=== PATIENT | male | born 1985 | race American Indian/Alaskan Native ===

== ENCOUNTER 2019-04-30 18:23 | Emergency (ER) | payer SELFPAY ==
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
[2019-04-30] MEDS ORDERED: ACETAMINOPHEN 500 MG TAB PO ONE (22:06)
[2019-04-30] MEDS ORDERED: IBUPROFEN 600 MG TAB PO ONE (22:06)
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
[2019-04-30 23:05] VITALS: BP 118/67
== END 2019-04-30 23:00 | disposition home or self-care (01) ==
LOC: ED 18:23
DX: S39.012A Strain of muscle, fascia and tendon of lower back, initial encounter (principal); S16.1XXA Strain of muscle, fascia and tendon at neck level, initial encounter; E11.9 Type 2 diabetes mellitus without complications; Z79.1 Long term (current) use of non-steroidal anti-inflammatories (NSAID); Z79.899 Other long term (current) drug therapy; V49.59XA Passenger injured in collision with other motor vehicles in traffic accident, initial encounter; Y93.89 Activity, other specified; Y92.410 Unspecified street and highway as the place of occurrence of the external cause; Y99.8 Other external cause status
CPT/HCPCS: 72040; 72100

== ENCOUNTER 2019-05-19 00:55 | Emergency (ER) | payer SELFPAY ==
[2019-05-19 03:47] LABS: Hematocrit 47.8 % (35.5-45.6); Hemoglobin 15.8 gm/dl (11.8-15.2); Mean Corpuscular HGB Conc 33 % (32-34); Mean Corpuscular Volume 85 fl (84-94); Platelet Count 241 K/mm3 (140-440); Red Blood Count 5.64 M/mm3 (3.65-5.03)
[2019-05-19 03:56] LABS: BUN/Creatinine Ratio 18; Blood Urea Nitrogen 14 mg/dL (9-20); Calcium 9.9 mg/dL (8.4-10.2); Hemolysis Index 12
--- NOTE | 2019-05-19 04:51 | Emergency Department Report ---
ED Psych HPI - General Chief Complaint: Psych Stated Complaint: MH EVAL Time Seen by Provider: 05/19/19 03:18 Source: patient Mode of arrival: Ambulatory - History of Present Illness Initial Comments: Patient is a 34-year-old male who states he is feeling suicidal. Genesis rodriguez is having thoughts of "blowing his brains out". Patient also states that he wants help with getting diabetes supplies. States he is a diabetic and has been out of his insulin and he has supplies to deliver his insulin. Patient denies homicidal ideations or auditory visual hallucination at this time. Does admit to being depressed. - Related Data Home Medications Medication Instructions Recorded Confirmed Last Taken Insulin Glargine [Lantus VIAL] 60 units SUB-Q BID 05/19/19 05/19/19 05/18/19 Lisinopril [Zestril] 5 mg PO QDAY 05/19/19 05/19/19 05/18/19 Lispro Insulin [HumaLOG] See Protocol SQ ACHS 05/19/19 05/19/19 05/18/19 raNITIdine HCl [Zantac] 150 mg PO QDAY 05/19/19 05/19/19 05/18/19 Previous Rx's Medication Instructions Recorded Last Taken Type Ibuprofen [Motrin] 600 mg PO Q8H PRN #24 tablet 04/30/19 Unknown Rx tiZANidine [Zanaflex 4mg TAB] 4 mg PO Q8H PRN #21 tablet 04/30/19 Unknown Rx traMADoL [Ultram] 50 mg PO Q6HR PRN #12 tablet 04/30/19 Unknown Rx DULoxetine [Cymbalta] 30 mg PO BID #60 capsule 05/22/19 Unknown Rx QUEtiapine [SEROquel] 50 mg PO HS #60 tablet 05/22/19 Unknown Rx Allergies Allergy/AdvReac Type Severity Reaction Status Date / Time No Known Allergies Allergy Unverified 04/30/19 21:29 ED Review of Systems ROS: Stated complaint: EVAL Other details as noted in HPI Comment: All other systems reviewed and negative ED Past Medical Hx - Past Medical History Previous Medical History?: Yes Hx Diabetes: Yes - Surgical History Past Surgical History?: No - Social History Smoking Status: Current Every Day Smoker Substance Use Type: None - Medications Home Medications: Home Medications Medication Instructions Recorded Confirmed Last Taken Type Ibuprofen [Motrin] 600 mg PO Q8H PRN #24 tablet 04/30/19 Unknown Rx tiZANidine [Zanaflex 4mg TAB] 4 mg PO Q8H PRN #21 tablet 04/30/19 Unknown Rx traMADoL [Ultram] 50 mg PO Q6HR PRN #12 tablet 04/30/19 Unknown Rx Insulin Glargine [Lantus VIAL] 60 units SUB-Q BID 05/19/19 05/19/19 05/18/19 History Lisinopril [Zestril] 5 mg PO QDAY 05/19/19 05/19/19 05/18/19 History Lispro Insulin [HumaLOG] See Protocol SQ ACHS 05/19/19 05/19/19 05/18/19 History raNITIdine HCl [Zantac] 150 mg PO QDAY 05/19/19 05/19/19 05/18/19 History DULoxetine [Cymbalta] 30 mg PO BID #60 capsule 05/22/19 Unknown Rx QUEtiapine [SEROquel] 50 mg PO HS #60 tablet 05/22/19 Unknown Rx ED Physical Exam - General Limitations: No Limitations General appearance: alert, in no apparent distress - Head Head exam: Present: atraumatic, normocephalic - Eye Eye exam: Present: normal appearance - ENT ENT exam: Present: mucous membranes moist - Neck Neck exam: Present: normal inspection - Respiratory Respiratory exam: Present: normal lung sounds bilaterally. Absent: respiratory distress, wheezes, rales, rhonchi - Cardiovascular Cardiovascular Exam: Present: regular rate, normal rhythm, normal heart sounds. Absent: systolic murmur, diastolic murmur, rubs, gallop - GI/Abdominal GI/Abdominal exam: Present: soft, normal bowel sounds. Absent: distended, tenderness, guarding, rebound - Rectal Rectal exam: Present: deferred - Extremities Exam Extremities exam: Present: normal inspection - Back Exam Back exam: Present: normal inspection - Neurological Exam Neurological exam: Present: alert, oriented X3 - Psychiatric Psychiatric exam: Present: normal affect, normal mood - Skin Skin exam: Present: warm, dry, intact, normal color. Absent: rash ED Course Vital Signs 05/19/19 05/19/19 05/19/19 01:31 03:50 08:10 Temperature 98.1 F 97.4 F L Pulse Rate 114 H 86 Respiratory 18 18 17 Rate Blood Pressure 129/85 Blood Pressure 120/68 [Left] O2 Sat by Pulse 100 99 99 Oximetry 05/19/19 05/19/19 05/20/19 20:10 21:04 02:23 Temperature 97.5 F L 97.8 F Pulse Rate 79 113 H Respiratory 18 18 18 Rate Blood Pressure Blood Pressure 107/63 123/78 [Left] O2 Sat by Pulse 95 95 96 Oximetry 05/20/19 05/20/19 05/21/19 07:54 20:20 08:03 Temperature 98.0 F 98.3 F 97.4 F L Pulse Rate 84 90 90 Respiratory 20 18 20 Rate Blood Pressure Blood Pressure 112/69 118/76 120/94 [Left] O2 Sat by Pulse 100 96 96 Oximetry 05/21/19 05/21/19 05/21/19 13:34 20:00 20:02 Temperature 97.9 F 97.6 F Pulse Rate 85 88 Respiratory 18 18 18 Rate Blood Pressure Blood Pressure 126/74 111/82 [Left] O2 Sat by Pulse 96 97 97 Oximetry 05/22/19 05/22/19 01:05 09:15 Temperature 97.9 F 97.7 F Pulse Rate 98 H 108 H Respiratory 18 16 Rate Blood Pressure Blood Pressure 114/69 115/81 [Left] O2 Sat by Pulse 98 96 Oximetry - Reevaluation(s) Reevaluation #1: 05/19/19 04:50 Patient is 34-year-old male who is presenting with suicidal ideations as well as ED for help with his diabetes. Patient blood glucose is 100 and normal despite not having taken his insulin. It is questionable whether the patient is actually diabetic. Patient was placed on a suicide watch and psych hold until the patient be evaluated by mental health assessors. Reevaluation #2: 05/19/19 05:00 Patient is medically cleared at this time ED Medical Decision Making - Lab Data Result diagrams: 05/19/19 03:26 05/19/19 03:26 Lab Results 05/19/19 05/19/19 05/19/19 Range/Units 03:26 03:26 03:26 WBC (4.5-11.0) K/mm3 RBC (3.65-5.03) M/mm3 Hgb (11.8-15.2) gm/dl Hct (35.5-45.6) % MCV (84-94) fl MCH (28-32) pg MCHC (32-34) % RDW (13.2-15.2) % Plt Count (140-440) K/mm3 Lymph # Sodium 141 (137-145) mmol/L Potassium 4.3 (3.6-5.0) mmol/L Chloride 100.2 (98-107) mmol/L Carbon Dioxide 27 (22-30) mmol/L Anion Gap 18 mmol/L BUN 14 (9-20) mg/dL Creatinine 0.8 (0.8-1.5) mg/dL Estimated GFR > 60 ml/min BUN/Creatinine Ratio 18 % Glucose 100 (75-100) mg/dL Calcium 9.9 (8.4-10.2) mg/dL Salicylates < 0.3 L (2.8-20.0) mg/dL Acetaminophen < 5.0 L (10.0-30.0) ug/mL Plasma/Serum Alcohol (0-0.07) % 05/19/19 05/19/19 Range/Units 03:26 03:26 WBC 11.0 (4.5-11.0) K/mm3 RBC 5.64 H (3.65-5.03) M/mm3 Hgb 15.8 H (11.8-15.2) gm/dl Hct 47.8 H (35.5-45.6) % MCV 85 (84-94) fl MCH 28 (28-32) pg MCHC 33 (32-34) % RDW 14.0 (13.2-15.2) % Plt Count 241 (140-440) K/mm3 Lymph # [employer] Specialist Sodium (137-145) mmol/L Potassium (3.6-5.0) mmol/L Chloride (98-107) mmol/L Carbon Dioxide (22-30) mmol/L Anion Gap mmol/L BUN (9-20) mg/dL Creatinine (0.8-1.5) mg/dL Estimated GFR ml/min BUN/Creatinine Ratio % Glucose (75-100) mg/dL Calcium (8.4-10.2) mg/dL Salicylates (2.8-20.0) mg/dL Acetaminophen (10.0-30.0) ug/mL Plasma/Serum Alcohol < 0.01 (0-0.07) % Critical care attestation.: If time is entered above; I have spent that time in minutes in the direct care of this critically ill patient, excluding procedure time. ED Disposition Clinical Impression: Suicidal ideation MDD (major depressive disorder), recurrent episode, severe Qualifiers: Psychotic features: without psychotic features Qualified Code(s): F33.2 - Major depressive disorder, recurrent severe without psychotic features Disposition: DC- TO HOME OR SELFCARE Is pt being admited?: No Does the pt Need Aspirin: No Condition: Stable Instructions: Depression (ED) Prescriptions: DULoxetine [Cymbalta] 30 mg PO BID #60 capsule QUEtiapine [SEROquel] 50 mg PO HS #60 tablet Referrals: ALLIE CHAVIS MD [Primary Care Provider] - 3-5 Days
[2019-05-19 05:13] LABS: Total Cells Counted 100
[2019-05-19 05:16] LABS: Platelet Estimate Consistent w Auto; RBC Morphology Normal
[2019-05-19 07:09] LABS: Bilirubin,Urine NEG (Negative); Blood,Urine NEG (Negative); Color,Urine Yellow (Yellow); Hyaline Casts,Urine 1 /LPF; Mucus,Urine 1+ /HPF; Protein,Urine <15 mg/dL mg/dL (Negative)
[2019-05-19 07:33] LABS: Benzodiazepines Screen,Urine PRESUMPTIVE NEGATIVE; Methadone Screen,Urine PRESUMPTIVE NEGATIVE; Opiate Screen,Urine PRESUMPTIVE NEGATIVE
[2019-05-19 08:02] LABS: Amphetamine Screen,Urine PRESUMPTIVE POSITIVE; Cannabinoid Screen,Urine PRESUMPTIVE POSITIVE; Cocaine Screen,Urine PRESUMPTIVE POSITIVE
[2019-05-19] MEDS ORDERED: DEXTROSE 50% IN WATER (25GM) 50 ML SYRINGE IV PRN (11:51)
[2019-05-19] MEDS ORDERED: INSULIN LISPRO 100 UNIT/ML SUB-Q ONE (12:04)
[2019-05-19] MEDS: INSULIN LISPRO 100 UNIT/ML SUB-Q SCH ×3 (12:11→22:24)
[2019-05-19] MEDS: INSULIN GLARGINE 100 UNITS/ML SUB-Q SCH (22:25)
[2019-05-20] MEDS: INSULIN LISPRO 100 UNIT/ML SUB-Q SCH ×5 (07:52→23:27)
[2019-05-20] MEDS ORDERED: INSULIN LISPRO 100 UNIT/ML SUB-Q ONE (11:58)
--- NOTE | 2019-05-20 13:02 | Consultation ---
History of Present Illness - Reason for Consult Consult date: 05/20/19 Reason for consult: Depressed and suicidal Requesting physician: CATRACHITA MAYERS - Chief Complaint Chief complaint: Depressed and suicidal - History of Present Psychiatric Illness The patient is a 34yo but unemployed male with history of Anxiety, MDD and DM. He presentes with depression and suicidal thoughts. In my i nterview with him today, he reports feeling more depressed over the last couple of weeks. He also report feeling suicidal and has been entertaining the thought of "blowing his brains out". He relates his depression and suicidal thoughts to multiple problems including marital problems, chronic back pain and financial difficulties. In the past he found Seroquel and Cymbalta beneficial and he is willing to be put on them. Patient denies panic attacks, recurrent nightmares or flashbacks. Patient denies symptoms suggestive of OCD or PTSD. Patient denies hallucinations, paranoia, thought interference and no features suggestive of hypomania or aishwarya. He completely denies homicidal thoughts. PAST PSYCHIATRIC HISTORY: Diagnoses: Anxiety, MDD Suicide attempts or Self-harm behavior: yes Prior psychiatric hospitalizations: yes Substance Abuse history: patient denies Previous psychiatric medications tried: Many including Seroquel and Cymbalta Outpatient treatment: no PAST MEDICAL HISTORY: DM Family Psychiatric History None reported or documented SOCIAL HISTORY Marital Status: but Living Arrangements: with a friend Employment Status: Unemployed Access to guns/weapons: patient denies Education: High school History of Abuse: patient denies Legal History: patient denies ROS: Constitutional: Negative for weight loss ENT: Negative for stridor Respiratory: Negative for cough or hemoptysis All other systems reviewed and are negative MENTAL STATUS General Appearance and Behavior: age appropriate, good eye contact, cooperative with questioning and polite Cooperation: Cooperative Psychomotor Behavior: within normal limits Mood: depressed Affect and affective range: Congruent with stated mood Thought Process: Fluent/Logical and Goal-directed Thought Content: Within reality Speech: Normal volume and Regular rate and rhythm Intellectual Functioning Average Suicidal Ideation: Positive for SI Homicidal Ideation: Denies HI Impulse Control: intact Insight and Judgment: normal insight and judgment Memory: Normal Attention: Normal Orientation: alert and oriented DIAGNOSES: MDD, Recurrent severe w/o psychosis Anxiety disorder unspecified RECOMMENDATIONS MEDICATIONS: Seroquel 50mg qhs and Cymbalta 30mg bid for depression Risks, benefits and alternatives of medications discussed with the patient, questions answered and consent obtained from patient. 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 Please contact with any questions and/or concerns. Medications and Allergies Allergies Allergy/AdvReac Type Severity Reaction Status Date / Time No Known Allergies Allergy Unverified 04/30/19 21:29 Home Medications Medication Instructions Recorded Confirmed Last Taken Type Ibuprofen [Motrin] 600 mg PO Q8H PRN #24 tablet 04/30/19 Unknown Rx tiZANidine [Zanaflex 4mg TAB] 4 mg PO Q8H PRN #21 tablet 04/30/19 Unknown Rx traMADoL [Ultram] 50 mg PO Q6HR PRN #12 tablet 04/30/19 Unknown Rx Insulin Glargine [Lantus VIAL] 60 units SUB-Q BID 05/19/19 05/19/19 05/18/19 History Lisinopril [Zestril] 5 mg PO QDAY 05/19/19 05/19/19 05/18/19 History Lispro Insulin [HumaLOG] See Protocol SQ ACHS 05/19/19 05/19/19 05/18/19 History raNITIdine HCl [Zantac] 150 mg PO QDAY 05/19/19 05/19/19 05/18/19 History Active Meds: Active Medications Dextrose (D50w (25gm) Syringe) 50 ml IV Q30MIN PRN; Protocol PRN Reason: Hypoglycemia Insulin Glargine (Lantus) 20 units SUB-Q [facility] Last Admin: 05/19/19 22:25 Dose: 20 units Documented by: Insulin Human Lispro (Humalog) 0 unit SUB-Q [facility]; Protocol Last Admin: 05/20/19 12:08 Dose: Not Given Documented by: Mental Status Exam - Vital signs Last Vital Signs Temp 98.0 F 05/20/19 07:54 Pulse 84 05/20/19 07:54 Resp 20 05/20/19 07:54 BP 112/69 05/20/19 07:54 Pulse Ox 100 05/20/19 07:54 Results Result Diagrams: 05/19/19 03:26 05/19/19 03:26 Abnormal lab results 05/19/19 05/19/19 05/20/19 Range/Units 16:34 21:25 07:49 POC Glucose 390 H 371 H 375 H (70-105) 05/20/19 Range/Units 12:01 POC Glucose 468 H (70-105) All other labs normal. Assessment and Plan - Psychiatric problem (1) MDD (major depressive disorder), recurrent episode, severe Current Visit: Yes Status: Acute Qualifiers: Psychotic features: without psychotic features Qualified Code(s): F33.2 - Major depressive disorder, recurrent severe without psychotic features
[2019-05-20] MEDS: DULoxetine 30 MG CAP PO SCH ×3 (13:58→23:27)
[2019-05-20] MEDS: INSULIN GLARGINE 100 UNITS/ML SUB-Q SCH ×2 (22:06→23:28)
[2019-05-20] MEDS: QUEtiapine 25 MG TAB PO SCH ×2 (22:07→23:27)
[2019-05-21] MEDS: INSULIN LISPRO 100 UNIT/ML SUB-Q SCH ×4 (07:41→23:34)
[2019-05-21] MEDS: DULoxetine 30 MG CAP PO SCH ×2 (10:14→23:32)
[2019-05-21] MEDS ORDERED: INSULIN REGULAR, HUMAN 100 UNITS/1 ML SUB-Q ONE (22:54)
[2019-05-21] MEDS: QUEtiapine 25 MG TAB PO SCH (23:31)
[2019-05-21] MEDS: INSULIN GLARGINE 100 UNITS/ML SUB-Q SCH (23:52)
[2019-05-22] MEDS ORDERED: INSULIN REGULAR, HUMAN 100 UNITS/1 ML SUB-Q ONE (04:24)
[2019-05-22] MEDS: INSULIN LISPRO 100 UNIT/ML SUB-Q SCH ×2 (08:00→12:00)
[2019-05-22 09:18] VITALS: BP 115/81
[2019-05-22] MEDS: DULoxetine 30 MG CAP PO SCH (10:20)
--- NOTE | 2019-05-22 10:28 | Progress Note ---
Subjective - Reason for Consult Consult date: 05/22/19 Reason for consult: Psych follow up - Chief Complaint Chief complaint: No complaints. SUBJECTIVE Patient seen by me this morning. He reports improved mood. He slept well last night and he has good appetite. He denies SI/HI/AVH/paranoia completely. He plans to go stay with his friend and follow-up with out-patient services for mental health treatment. ROS Constitutional: Negative for weight loss ENT: Negative for stridor Respiratory: Negative for cough or hemoptysis All other systems reviewed and are negative MENTAL STATUS General Appearance and Behavior: age appropriate, good eye contact, cooperative with questioning and polite Cooperation: Cooperative Psychomotor Behavior: within normal limits Mood: Good Affect and affective range: Congruent with stated mood Thought Process: Fluent/Logical and Goal-directed Thought Content: Within reality Speech: Normal volume and Regular rate and rhythm Intellectual Functioning Average Suicidal Ideation: Denies SI Homicidal Ideation: Denies HI Impulse Control: intact Insight and Judgment: normal insight and judgment Memory: Normal Attention: Normal Orientation: alert and oriented DIAGNOSES: MDD, Recurrent severe w/o psychosis Anxiety disorder unspecified RECOMMENDATIONS MEDICATIONS: Discharge home on Seroquel 50mg qhs and Cymbalta 30mg bid for depression Risks, benefits and alternatives of medications discussed with the patient, questions answered and consent obtained from patient. PSYCHOTHERAPY: Supportive psychotherapy provided MEDICAL: Per primary team [employer]: Yes DISPOSITION: Acute inpatient psychiatric hospitalization is no longer indicated. Patient may be discharged when medically stable LEGAL STATUS: 1013 rescinded FOLLOW-UP: Will sign off. The patient agreed on the treatment plan, understood the risk, benefit, al ternative treatment, potential consequence of no treatment, and gave informed consent. Please contact with any questions and/or concerns. Mental Status Exam - Vital signs Last Vital Signs Temp 97.7 F 05/22/19 09:15 Pulse 108 H 05/22/19 09:15 Resp 16 05/22/19 09:15 BP 115/81 05/22/19 09:15 Pulse Ox 96 05/22/19 09:15 Assessment and Plan - Patient Problems (1) MDD (major depressive disorder), recurrent episode, severe Status: Acute Qualifiers: Psychotic features: without psychotic features Qualified Code(s): F33.2 - Major depressive disorder, recurrent severe without psychotic features
== END 2019-05-22 16:22 | disposition home or self-care (01) ==
LOC: EEVIPCON 00:55 → ED 00:55
DX: F33.2 Major depressive disorder, recurrent severe without psychotic features (principal); Z79.899 Other long term (current) drug therapy
CPT/HCPCS: 36415; 80048; 80307; 80320; 81001; 82962; 85007; 85025; 96372; 99284; G0480; J1815